=== PATIENT | male | born 1995 | race Caucasian/White ===

== ENCOUNTER 2019-04-18 14:03 | Emergency (ER) | payer OTHER, SELFPAY ==
[2019-04-18 14:04] VITALS: BP 141/84; PULSE 108; RESP 15; TEMP 37.2; O2SAT 100; BMI 24.5
[2019-04-18 14:23] VITALS: RESP 16
--- NOTE | 2019-04-18 14:28 | RAD_ITS ---
STUDY: X-RAY - RIGHT HAND, ATTENTION RIGHT THUMB. REASON FOR EXAM: Male, 23 years old. Crushing injury in machine at work TECHNIQUE: 3 view(s) of the finger were obtained. COMPARISON: None. FINDINGS: Normal metacarpal head. Normal metacarpophalangeal joint. Nondisplaced comminuted fracture of the distal aspect of the proximal phalanx of the thumb with overlying soft tissue laceration. Normal distal phalanx. Normal proximal interphalangeal joint. RAD/Finger(s) Min 2 Views IMPRESSION: Nondisplaced condylar fracture of the distal aspect of the proximal phalanx of the thumb with overlying soft tissue laceration. Electronically Signed: Pelon Esteves, at 15:11 EST , Service support ,
--- NOTE | 2019-04-18 14:33 | ED.DCSUM_ITS ---
History of Present Illness Chief Complaint: Upper Extremity Injury Informant: Patient Onset: Today Current Severity: Moderate Maximum Severity: Moderate Narrative: Patient sustained a laceration to his right dorsal thumb region, he got it caught in an industrial crimper. He has no other complaints. Pain is moderate to severe his tetanus is up-to-date Past Medical History - Allergies and Home Meds Allergies/Adverse Reactions: Allergies No Known Allergies Allergy (Verified 04/18/19 14:24) Primary Care Physician: Nathan Corona DO [Primary Care Provider] - Past Medical History: None Smoking Status: Current every day smoker Review of Systems General: Denies: Fever Musculoskeletal: Reports: - - Thumb pain Skin: Reports: - - Laceration as in HPI Neurological: Reports: Weakness, Parasthesia Hematologic: Denies: Easy bruising, Easy bleeding Physical Exam Vital Signs/Narrative: Vital Signs Temp Pulse Resp BP Pulse Ox 04/18/19 14:23 16 04/18/19 14:04 98.9 F 108 H 15 141/84 H 100 General: Well nourished, Well developed Neck: Supple Extremities: - - There is a 2 cm laceration over the IP joint, extensor function is not intact, it is disrupted, I can see the extensor tendon and is severed. Skin: - - 2 Centimeter dorsal thumb laceration Neurological: - - Slight paresthesias distal finger, inability to extend right thumb Diagnostic/Tx/Re-eval Right thumb x-ray interpreted by me as well as the radiologist, shows a proximal phalanx distal fracture that is open - Medical Decision Making Patient has an extensor tendon laceration is an open fracture of the proximal phalanx, I called orthopedics I discussed with the physician fitter's assistant who in turn discussed with the attending physician, they will see the patient in the outpatient clinic and plan on repairing the tendon next week, the plan is that they will see him in the office Sunday or Sunday and plan on surgery Sunday or Sunday. In the meantime patient has an open fracture, he has an overlying laceration that is significant, only one stitch was placed for loose approximation, I irrigated the wound quite well, I placed it in a Ortho-Glass thumb spica splint. Patient received IM Ancef in the emergency department and will be placed on p.o. antibiotics for home. He is under strict warning not to remove his splint, not to do anything that would get dirt on the splint and to be cautious not to hit it. He understands that this is very serious since he is a right dominant patient with a right thumb injury. He understands that he will go home to fill his antibiotics and take them as prescribed. Procedures - Lacerations No standard instances Depth: Skin Shape: Stellate Prep: Sterile Conditions, Betadine, Shure-Clens Laceration repair: Irrigated Irrigated (ml): 30 Number of Sutures/Gleason: 1 Suture Information: Ethilon, 4-0 - Upper Extremity Splints Upper Extremity Splint: Orthoglass, Thumb Spica Splint Fabrication: Fabricated Location: Right ED Disposition - Plan for ED Patient: Disposition: IN Hospital Diagnosis: Open fracture, Extensor tendon laceration of finger with open wound Instructions: FRACTURE, Finger (Open) Prescriptions: Cephalexin [Keflex] 500 mg PO 4X/DAY #40 cap Transmission Status: Pending to [facility] Hydrocodone Bitart/Apap 5-325 [Hudson 5MG-325MG] 1 tablet PO Q4H PRN PRN 2 Days #10 tablet PRN Reason: Pain Transmission Status: Sent to [facility] Referrals: Ena West DO [STAFF PHYSICIAN] - 2 Days
[2019-04-18 15:04] VITALS: RESP 16
[2019-04-18 16:03] VITALS: RESP 16
[2019-04-18] MEDS: HYDROcodone Bitartrate/Apap 5/325 Tablet PO (16:03)
[2019-04-18] MEDS: Cefazolin 1 GM/5 ML Vial IM (16:07)
[2019-04-18 16:46] VITALS: RESP 16
== END 2019-04-18 16:47 | disposition home or self-care (01) ==
PROVIDERS: Emergency Provider Emergency Medicine; PCP Pediatrics
DX: S62.511B Displaced fracture of proximal phalanx of right thumb, initial encounter for open fracture (principal); S66.221A Laceration of extensor muscle, fascia and tendon of right thumb at wrist and hand level, initial encounter; W31.89XA Contact with other specified machinery, initial encounter; Y93.9 Activity, unspecified; Y92.9 Unspecified place or not applicable; F17.200 Nicotine dependence, unspecified, uncomplicated
CPT/HCPCS: 29125; 12001; 73140; 96372; 99283

== ENCOUNTER 2019-04-25 07:30 | Day surgery (SDC) | payer OTHER, SELFPAY ==
[2019-04-22 08:36] VITALS: BMI 24.1
--- NOTE | 2019-04-22 10:29 | HP_ITS ---
I have re-examined the patient. There are no clinical changes since date of exam. Intake Vital Signs 04/22/19 Height 5 ft 5 in 04/22/19 Weight: 145 lb 04/22/19 BMI 24.1 04/22/19 BMI 24.5 Intake Visit Reasons: Right hand Is patient in pain?: Yes Pain scale (1-10): 5 Allergies No Known Allergies Allergy (Verified 04/22/19 08:36) Medications Cephalexin [Keflex] 500 mg PO 4X/DAY #40 cap 04/18/19 [Rx Confirmed 04/22/19] PFSH Social History (Updated 04/22/19 @ 10:[address] nEa West, ) Smoking Status: Current every day smoker HPI Right hand: Surgical H&P: Yes Details: Parts of this documentation were recorded by a scribe, this documentation accurately reflects the service provided and the decisions made by me, Dr. Ena West, 04/22/19 0829. TRISTAN TERRY is a 23 year old M here today for an ED followup on his right hand. Patient states on 04/18/19 his thumb got smashed in an industrial crimper. Patient notes that he had a deep cut and went to the ED. Patient notes that he had an xray which showed a fracture of middle phalanx. He notes that they cleaned the wound and stitched his finger back up. Patient notes that he has significant pain currently. He was put into a splint which he has kept on at all times. He has been taking tylenol for pain. Patient has a weird sensation over the tip of his thumb. Patient is not working currently. Patient is taking clindamycin which he has been taking as prescribed. ROS Musc Reports joint pain, Reports joint swelling, Reports numbness, Reports tingling Skin/Breast Reports system reviewed and no additional complaints, except as docu Neuro Yes system reviewed and no additional complaints, except as docu, Yes numbness, Yes tingling Ortho Exam Right Wrist/Hand Date of injury: 04/18/19 Skin/Wound: No suture/eugenio removed, Yes Swelling, Yes nail intact WRIST: NVI Left Wrist/Hand Skin/Wound: Yes Swelling Right Foot/Ankle Skin/Wound: No suture/eugenio removed Assessment & Plan Problems 1. Laceration of extensor muscle, fascia and tendon of right thumb at wrist and hand level, initial encounter S66.221A 2. Displaced fracture of proximal phalanx of right thumb, initial encounter for open fracture S62.511B Plan Personally reviewed the patient's medical history, medications, surgeries and recent exams if available. X-rays were reviewed. There is no obvious fracture, dislocation, or lucency noted. Educated on the anatomy of the thumb and the mechanism, explained that he will need and I & D, pinning with revision incision and tendon repair. Reviewed the risk of stiffness post op and limited flexion is likely. Explained that he will have function. We will submit for surgery and OT for post op. Will redress and place in an extension splint. Patient is off work until evaluation after surgery Reviewed the pre-operative plans with the patient. Risks and benefits of the procedure were fully explained, including but not limited to infection, neurovascular injury, continued pain, arthritis, stiffness, need for further surgery, re-injury, DVT, PE, general risks of anesthesia, and loss of limb or life. The patient understands all the risks and does wish to proceed with written consent. Follow up postop or sooner if pain, swelling, numbness or associated symptoms, or concerns develop. All questions answered. Patient in agreement of plan. Coding Level of Care Code Off vis,new,level 3 Diagnoses Laceration of extensor muscle, fascia and tendon of right thumb at wrist and hand level, initial encounter S66.221A Displaced fracture of proximal phalanx of right thumb, initial encounter for open fracture S62.511B 04/22/19 1029 <Electronically signed by Ena quinn DO> Date _ Ena West DO
[2019-04-25] VITALS (13 sets, daily range): BP systolic 100–129; BP diastolic 48–86; PULSE 47–86; RESP 15–18; TEMP 36.3–36.9; O2SAT 95–100; BMI 24.5
[2019-04-25] MEDS: Lactated Ringers 1,000 ML 100 ML IV ×2 (08:08→11:30)
--- NOTE | 2019-04-25 09:00 | RAD_ITS ---
STUDY: X-RAY - RIGHT HAND, ATTENTION THUMB REASON FOR EXAM: Interoperative reduction/pinning of right thumb. TECHNIQUE: 3 intraoperative images of the finger were obtained. COMPARISON: Radiographs 04/18/2019. FINDINGS: There is reduction of the fracture of the first proximal phalanx bridged with K wires. 2 minutes and 3 seconds of fluoroscopy time was used. Electronically Signed: Abran Vieyra MD at 14:47 EST Tel , Service support , RAD/Finger(s) Min 2 Views
[2019-04-25] MEDS: Cefazolin 2 GM in 0.9% Normal Saline 100 ML IV (09:21)
[2019-04-25] MEDS: Bupivacaine 0.25% 30 ML Vial (11:12)
--- NOTE | 2019-04-25 11:17 | PCM.DC.ORTHO ---
Discharge Diet: No Restrictions - follow up in 2 weeks for dressing change, call with concerns, keep dressing cdi Discharge Activity: May Not Drive May shower in (days): 1 Ice area for (Minutes): 20 - Every hour while awake. Weight Bearing Status: Weight bearing as tolerated Keep extremity elevated above heart level: Operative Extremity Call your doctor if your incision/area has: Continuous Slow Oozing, Sudden Increased Bleeding, Increased Pain/ Swelling, Increased Redness, Foul Smelling Discharge Call your doctor if you observe: Fever of 101 or Higher, Coldness, Increased Pain, Numbness or Tingling, Change in Color, Calf discomfort Allergies/Adverse Reactions: Allergies No Known Allergies Allergy (Verified 04/25/19 07:48) Medications to take at Discharge Cephalexin [Keflex] 500 mg PO 4X/DAY #40 cap 04/18/19 Acetaminophen [Tylenol Extra Strength] 500 mg PO Q6H PRN PRN 04/24/19 traMADol [Ultram (G)] 50 mg PO Q6H PRN PRN 04/24/19 Oxycodone HCl/Acetaminophen [Percocet 5/325] 1 - 2 tablet PO Q6H PRN PRN 5 Days #28 tablet 04/25/19 The following prescriptions were given: Oxycodone HCl/Acetaminophen [Percocet 5/325] 1 - 2 tablet PO Q6H PRN PRN 5 Days #28 tablet PRN Reason: Pain Transmission Status: Sent to [facility] Primary Care Physician: Care Physician,No Primary [Primary Care Provider] - Test Results: Test results from this visit will be discussed in further detail at your follow-up appointment, if applicable. Please Follow Up With: Ena West, DO - [phone]
--- NOTE | 2019-04-25 11:18 | OP.PCM_ITS ---
Report of Operation Date of Procedure: 04/25/19 Pre-Operative Diagnosis: right thumb proximal phalanx fracture/open; epl t raumatic rupture/laceration Surgery/Procedure Performed:: right thumb epl laceration repair, irrigation/debridement bone, subcutaneous tissue, scar revision; open reduction percutaneous pinning phalanx fracture Type of Anesthesia:: General, Local Anesthesiologist: Christopher Kan Estimated Blood Loss (mL): min Fluids Replaced: 900cc lr Description of Procedure: Preop note Patient is a 23-year-old male with a cramping work accident to his right thumb. He sustained a fracture been and a traumatic laceration of extensor pollicis longus. He was irrigated and washed out emergency room and sent to see my office. He was also placed on antibiotics per the emergency room was still taking it when he saw me in the office and his tetanus was up-to-date. Decision was made to take emergently to the operating room due to retraction of the EPL and the open nature of his fractures we did take him on Sunday today. Risk benefits and alternatives were discussed with patient. Risk including but not limited to blood loss, blood clot, infection, neurovascular, failure procedure, loss of life and loss of limb. Patient is aware would like proceed with right thumb closed duct open reduction versus closed reduction percutaneous pinning debridement of finger and next repair as indicated. Operative note Patient seen and examined preop holding area. Right hand was marked. Patient brought to the operating room placed supine on the operative table sign, anesthesia, antibiotics were administered. The right arm was prepped and draped usual sterile usual sterile fashion. We then extended our incision and his laceration both proximally distally in order to gain better visualization of the fracture site as well as the tendon that was lacerated. We then debrided bone and irrigated the soft tissue due to scar revision performed scar revision as well as there is as the injury to the finger resulted in some maceration of the skin. Then using fluoroscopy fluoroscopic guidance and then the open reduction we did percutaneous pin starting at the distal phalanx crossing the joint at the DIP joint garnering access to the distal piece and then plan then placed another cross pin starting on the radial border to further prevent rotation of the piece and anatomic alignment. At that we did then bend and cut truncate the pins and and had multiple images in AP and lateral planes good reduction of our arm fracture site. Then turned to our EPL repair. We placed 2 Krak?w stitches in standard technique crossing the extensor pollicis longus and then placed to cut reinforcing stitches using a 4-0 Ethibond. We then irrigated the incision again with copious muscle sterile saline. Did do a little bit more extensive scar revision and then closed the skin using interrupted 4-0 nylon stitches. Sterile dressings were applied the splint was applied we did perform a postop local block for pain control. Patient was extubated transferred recovery room in stable condition. No complications transferred recovery room in stable condition Postoperative Nonweightbearing right arm Call with increased pain numbness tingling of the issues arise Follow-up in 2 weeks Percocet at pharmacy [facility] pharmacy patient told if he does not want the tramadol he needs to bring that back with him in order to get the Percocet prescription patient is aware This note was generated with [employer] dictation software. It may contain incorrect words, spelling, and punctuation that were not noted in checking the note before signing.
== END 2019-04-25 14:15 | disposition home or self-care (01) ==
LOC: SDC 07:35 → AC 07:36
PROVIDERS: Referring Provider Orthopaedic Surgery; Visit Provider Orthopaedic Surgery
PROC: (CPT 11012; principal; 2019-04-25 08:45)
DX: S62.511B Displaced fracture of proximal phalanx of right thumb, initial encounter for open fracture (principal); S66.221A Laceration of extensor muscle, fascia and tendon of right thumb at wrist and hand level, initial encounter; W23.0XXA Caught, crushed, jammed, or pinched between moving objects, initial encounter; Y93.9 Activity, unspecified; Y92.9 Unspecified place or not applicable; F17.200 Nicotine dependence, unspecified, uncomplicated
CPT/HCPCS: 01480; 11012; 26765; 73140; 76000; J7120; J2405

== ENCOUNTER → 2019-05-20 09:43 | Outpatient (CLI) | payer OTHER, SELFPAY ==
[2019-05-20 09:39] VITALS: BMI 24.5
--- NOTE | 2019-05-20 10:27 | RAD_ITS ---
STUDY: X-RAY - RIGHT HAND, ATTENTION THUMB REASON FOR EXAM: Postoperative follow-up. TECHNIQUE: 3 view(s) of the finger were obtained. COMPARISON: Intraoperative images 04/25/2019. FINDINGS: Normal first carpometacarpal joint. Normal metacarpal. Normal metacarpophalangeal joint. There is a fracture of the first proximal phalanx with K wires bridging the fracture and interphalangeal joint with the fracture fragments remaining in anatomic alignment and position with early healing. RAD/Finger(s) Min 2 Views IMPRESSION: ORIF of first proximal phalangeal fracture. Electronically Signed: Abran Vieyra MD at 10:44 EDT Tel , Service support ,
== END ==
PROVIDERS: Referring Provider Orthopaedic Surgery; Visit Provider Orthopaedic Surgery
DX: S62.511B Displaced fracture of proximal phalanx of right thumb, initial encounter for open fracture (principal); S66.221A Laceration of extensor muscle, fascia and tendon of right thumb at wrist and hand level, initial encounter
CPT/HCPCS: 73140

== ENCOUNTER 2019-07-30 16:30 | Outpatient (RCR) | payer OTHER, SELFPAY ==
[2019-06-13 09:02] VITALS: BMI 24.5
--- NOTE | 2019-06-16 12:52 | HP.OTEVAL_ITS ---
Patient's Visit Information TRISTAN TERRY is a 23 year old M, referred to Occupational Therapy by Dr. Ena West DO, with a diagnosis of right thumb pinning. Date of Evaluation: 06/16/19 Occupational Therapist: THOMAS Ny/Sebastian, CHT - Subjective Subjective: This 23 year old male was seen for OT eval with dx of a right thumb crush injury on 04/18/19. PT underwent sx pinning and extensor tendon repair on 04/25/19. pt had pinning removed on 06/13/19. Today pt reports thumb sensitivity with daily tasks and limited ROM. Pt would like to return to his PLOF. - Pain right thumb 0 Pain Intensity Range: 0, 4, 5 - ROM CMC: right 5 left 0 MP: right 50 left 55* IP: right 10 left 70* ROM Comments: pt limited with right thumb ROM. pt is right handed - Strength Student Services Dean: right NT left 130# Lateral Pinch: right NT left 8# Tripod Pinch: right NT left 10# Strength Comments: will test right pinch and aircraft fuselage framer at 8 weeks - Sensation Sensation Comments: denies - In-Hand Manipulation Finger to Palm Translation: Unable - Right, Normal - Left Palm to Finger Translation: Unable - Right, Normal - Left - Quick DASH-Disab of Arm,Shoulder& Hand Quick DASH Score: 55.0000 - Goals Goal:: Pt will demo a right aircraft fuselage framer strength of 100#, right lateral pinch of 6# and right tripod pinch 6# by d/c to increase pts ind. with ADLs and IADLs. Goal:: pt will demo right thumb IP flex to 30* or greater to increase ind. with manipulating small objects ind. by d/c Goal:: pt will report no pain greater than 1/10 with use of right hand with ADLs and IADls by d/c Goal:: pt will demo manipulation of coins, fasteners, nuts/bolts etc. at IND level by d/c - Rehabilitation General Assessment: pt is currently 7 weeks s/p right thumb pinning due to a right thumb crush injury on 04/18/19. Today pt presents with limited thumb ROM and kai. for resisitance- also sensitivity limiting use of right pinch tasks. Due to the limitations pt has increase difficulty with ADls and IADLS at this time. Pt would benefit from skilled OT services 2-3x week for 4-6 weeks to return pt to PLOF. Today therapist atif. custom protective orthosis for right thumb. Therapist ed. on use and precautions- pt demo understanding- Therapist also ed. pt on AROM ex and scar mtg. pt demo good understanding and agree to POC. Rehabilitation Potential: Good - Anticipated Interventions Anticipated Interventions: A/AAROM/PROM, Strengthening, Scar Care, Desensitization, Modalities, Orthoses, Joint Protection/Energy Conservation - Visit Plan Frequency: 2-3x /Week Duration: 4-6 Weeks TEXT: Thank you for the opportunity to evaluate your patient. For Medicare and Medicare HMO plans, please review the plan of care and approve it. It will need to be FAXED BACK to us at [phone] for Medicare purposes. Please let me know if there are questions or concerns regarding this plan of care. Physician Signature: Date:
--- NOTE | 2019-07-30 17:02 | HP.OTDCSUM_ITS ---
It has been my pleasure to treat TRISTAN TERRY under orders from Dr. Ena West, , for the diagnosis of right thumb pinning for a total of 7 visit(s). Please see the following information for a summary of their discharge status. % Improvement: 90 Objective/Function: right typesetter apprentice strength 100#. right lateral pinch 8#. right tripod pinch 4#. IP flex 15* with blocking increase from 10*. pt states pain 3-4/10 with increase use of pinch/typesetter apprentice use with tools- Patient Goals: Regain Mobility, Regain Strength, Decrease Pain, Improve Fine Motor Skills, Use Hand/Wrist/Arm Normally Again Goal:: Pt will demo a right typesetter apprentice strength of 100#, right lateral pinch of 6# and right tripod pinch 6# by d/c to increase pts ind. with ADLs and IADLs. Goal:: pt will demo right thumb IP flex to 30* or greater to increase ind. with manipulating small objects ind. by d/c Goal:: pt will report no pain greater than 1/10 with use of right hand with ADLs and IADls by d/c Goal:: pt will demo manipulation of coins, fasteners, nuts/bolts etc. at IND level by d/c Plan: D/C. pt to cont with blocking ex. Discharge Comments: Pt was seen for 7 OT visits following pin removal of his right thumb- pt gained functional use of right hand and fine motor skills to return to work with minimal or no compensitory sandra. pt has met goals in OT and is D/c at this time- therapist advised to cont. with HEP of ROM, scar mtg and desensitization. pt agree. If there are questions or concerns regarding this patient's occupational therapy, please fell free to call me at [phone]. Thank you for the referral of this patient. Sincerely, Constanza Munoz, OTR/L, CHT
== END 2019-07-30 19:00 | disposition home or self-care (01) ==
LOC: OT 16:30
PROVIDERS: Referring Provider Orthopaedic Surgery; Visit Provider Orthopaedic Surgery
DX: Z98.890 Other specified postprocedural states (principal)
CPT/HCPCS: 97110; 97140; 97166; 97530; 97760